=== PATIENT | male | born 1995 | race Two or more races ===

== ENCOUNTER 2017-02-25 17:39 | Emergency (ER) | payer OTHER ==
--- NOTE | ~2017-02-25 | US113 ---
[facility] A Service of [facility] & [facility] RADIOLOGY TEXT RESULTS PATIENT: TEMO ROBERTS LOCATION: SED : [birth year] UNIT #: [id number] AGE: [address]: Maldonado Purcell MD SEX: M ORDER DR: [id number] [address] [address] [id number] E MR#: [id number] Acc #: [id number] NAME: TEMO ROBERTS : 1995 SEX: M STUDY DATE/TIME: 02/25/2017 19:49 UNIT: SED ROOM: STUDY DESCRIPTION: US Scrotal Duplex Complete Attending Physician: Maldonado Purcell M.D. Ordering Physician: Roshan Schwartz M.D. Primary Care Physician: Bg Craig M.D. MEDICAL IMAGING REPORT This report is preliminary unless electronic signature is present. EXAM Scrotal ultrasound with Doppler HISTORY Right groin pain and testicle pain for 1 day. No injury. FINDINGS Ultrasound examination of the scrotum and testes was performed with gonsalez-scale and Doppler. No testicular mass or enlargement. Blood flow in both testes on color Doppler. Incidental 3.0 mm left epididymal head cyst. Very small left varicocele. Right epididymis is normal. IMPRESSION 1. No acute findings. 2. Normal blood flow in both testes on color Doppler. No testicular mass. 3. Small left varicocele and incidental 3.0 mm left epididymal head cyst. Dictated by... Tavo Hickey M.D. THIS IS AN ELECTRONICALLY VERIFIED REPORT Tavo Hickey M.D. at 02/26/2017 4:09 PM Jacoby TD: 02/26/2017 09:35 JOB #: [id number] MEDICAL IMAGING REPORT Page 1 of 1
[~2017-02-25 17:39] MED LIST: ADVIL200 M2 PO; IBUPROFEN800 MG PO; NO MEDICATIONS
[2017-02-25] MEDS ORDERED: EYE DROP IOCULR (17:46)
[2017-02-25 18:19] LABS: BASOPHIL# 0.1 X10e3 (0-0.3); BASOPHIL% 0.8 % (0-2.5); EOSINOPHIL# 0.2 X10e3 (0-0.7); EOSINOPHIL% 2.7 % (0.0-7.0); HEMATOCRIT 43.7 % (38.0-50.0); HEMOGLOBIN 14.9 gm/dL (13.0-16.0); LYMPHOCYTE# 3.2 X10e3 (1.0-3.5); LYMPHOCYTE% 43.2 % (17.0-45.0); MEAN CELL VOLUME 88.9 FL (83-96); MEAN CORPUSCULAR HEMOGLOBIN 30.2 PG (28-34); MEAN PLATELET VOLUME 9.6 FL (6.5-11.5); MONOCYTE# 0.7 X10e3 (0-1.0); MONOCYTE% 10.1 % (3.0-12.0); NEUTROPHIL# 3.2 X10e3 (1.5-7.1); NEUTROPHIL% 43.2 % (40-75); PLATELET COUNT 174 X10e3 (140-420); RED BLOOD COUNT 4.92 X10e (3.90-5.60); RED CELL DISTRIBUTION WIDTH 12.9 % (11.0-15.5); WHITE BLOOD COUNT 7.4 X10e3 (4.0-10.5)
[2017-02-25 18:20] LABS: DIFF IND NO
[2017-02-25 18:21] LABS: URINE SOURCE CLEAN CATCH
[2017-02-25 18:23] LABS: URINE APPEARANCE CLEAR; URINE BILIRUBIN NEG (NEG); URINE BLOOD NEG (NEG); URINE COLOR YELLOW; URINE GLUCOSE NEG (NORM); URINE KETONE NEG (NEG); URINE LEUKOCYTE ESTERASE NEG (NEG); URINE NITRATE NEG (NEG); URINE PROTEIN NEG (NEG)
[2017-02-25 18:27] LABS: MICRO INDICATED? NO
[2017-02-25 18:38] LABS: CALCIUM SERUM 8.8 mg/dL (8.4-10.2); GLOM FILT RATE Estimated 108.6 mL/min (>60); POTASSIUM 3.8 mmol/L (3.5-5.1)
== END 2017-02-25 21:20 | disposition home or self-care (01) ==
LOC: SED 17:39
PROVIDERS: Emergency Medicine
DX: N50.82 Scrotal pain (principal)
CPT/HCPCS: 36415; 80048; 81003; 85025; 93975; 99284